=== PATIENT | female | born 1970 | race Caucasian/White ===

== ENCOUNTER 2018-07-02 11:12 | Inpatient (IN) | payer MEDICAID, OTHER ==
[~2018-07-02] VITALS: Ht 160 cm; Wt 76.0 kg
[~2018-07-02 11:12] MED LIST: MEDR5TAB4 PO; METF-480 PO; METF-849 PO; REG SC
[2018-07-02] MEDS ORDERED: ONDANSETRON (ODT) 4 MG TAB ODT STA (12:02)
[2018-07-02] MEDS ORDERED: HYDROCODONE/APAP (5/325) TAB PO ONE (12:30)
[2018-07-02] MEDS ORDERED: SOD CHLORIDE 0.9% 1,000 ML IV STA (13:58)
[2018-07-02] MEDS ORDERED: ONDANSETRON 4 MG INJ IV PRN ×2 (15:00→17:30)
[2018-07-02] MEDS ORDERED: ACETAMINOPHEN 325 MG TAB PO PRN ×2 (15:00→17:30)
--- NOTE | 2018-07-02 15:51 | ERD ---
ER Documentation Chief Complaint Chief Complaint LEFT SIDED ABD PAIN SINCE THIS MORNING HPI 48-year-old female presenting with left-sided flank pain and epigastric pain times 1 day. Patient started vomiting this morning approximately 8 hours prior to my evaluation. Last bowel movement was earlier today. No dysuria. Patient states that she is diabetic on both insulin and pills. NKDA. Surgical history denies. Social history denies. Denies fever. ROS All systems reviewed and are negative except as per history of present illness. Medications Home Meds Active Scripts Medroxyprogesterone Acetate* (Medroxyprogesterone Acetate*) 5 Mg Tablet, 5 MG PO DAILY for 5 Days, TAB Prov:BRITT BUSTILLO PA-C 12/21/15 Metformin* (Glucophage*) 500 Mg Tab, 500 MG PO BID, #28 TAB Prov:BRITT BUSTILLO PA-C 12/21/15 Reported Medications Insulin Human Regular (Novolin-R) 100 Unit/Ml Soln, SC BID 02/25/12 Metformin* (Glucophage*) 850 Mg Tablet, PO TID. 02/25/12 Allergies Allergies: Coded Allergies: No Known Allergy (Unverified , 02/25/14) PMhx/Soc History of Surgery: Yes () Anesthesia Reaction: No Hx Neurological Disorder: No Hx Respiratory Disorders: No Hx Cardiac Disorders: No Hx Psychiatric Problems: No Hx Miscellaneous Medical Probl: Yes (dm) Hx Alcohol Use: Yes (SOMETIMES) Hx Substance Use: No Hx Tobacco Use: No Smoking Status: Never smoker FmHx Family History: No diabetes, No coronary disease, No other Physical Exam Vitals Vital Signs Date Temp Pulse Resp B/P (MAP) Pulse Ox O2 O2 Flow FiO2 Time Delivery Rate 07/02/18 98.9 89 18 124/71 99 11:22 (88) Physical Exam GENERAL: The patient is well-appearing, well-nourished, in no acute distress HEENT: Atraumatic. Conjunctivae are pink. Pupils equal, round, and reactive to light. There is no scleral icterus. Tympanic membranes clear bilaterally. Oropharynx clear. NECK: C-spine is soft and supple. There is no meningismus. There is no cervical lymphadenopathy. CHEST: Clear to auscultation bilaterally. There are no rales, wheezes or rhonchi. HEART: Regular rate and rhythm. No murmurs, clicks, rubs or gallops. ABDOMEN: Normal active bowel sounds. Tender to palpation epigastric region and left lower quadrant. No rebound tenderness. No organomegaly. No fluid shift. BACK: No midline or flank tenderness. Result Diagram: 07/02/18 1252 07/02/18 1252 Results 24 hrs Laboratory Tests Test 07/02/18 12:52 07/02/18 12:54 07/02/18 12:56 White Blood Count 10.9 10^3/ul Red Blood Count 4.66 10^6/ul Hemoglobin 14.5 g/dl Hematocrit 42.6 % Mean Corpuscular Volume 91.4 fl Mean Corpuscular Hemoglobin 31.1 pg Mean Corpuscular 34.0 g/dl Hemoglobin Concent Red Cell Distribution Width 12.0 % Platelet Count 228 10^3/UL Mean Platelet Volume 10.9 fl Immature Granulocytes % 0.500 % Neutrophils % 53.7 % Lymphocytes % 35.9 % Monocytes % 7.6 % Eosinophils % 1.7 % Basophils % 0.6 % Nucleated Red Blood Cells % 0.0 /100WBC Immature Granulocytes # 0.050 10^3/ul Neutrophils # 5.8 10^3/ul Lymphocytes # 3.9 10^3/ul Monocytes # 0.8 10^3/ul Eosinophils # 0.2 10^3/ul Basophils # 0.1 10^3/ul Nucleated Red Blood Cells # 0.0 10^3/ul Sodium Level 140 mmol/L Potassium Level 4.0 mmol/L Chloride Level 100 mmol/L Carbon Dioxide Level 30 mmol/L Anion Gap 10 Blood Urea Nitrogen 14 mg/dl Creatinine 0.45 mg/dl Est Glomerular Filtrat > 60 mL/min Rate mL/min Glucose Level 209 mg/dl Calcium Level 9.7 mg/dl Total Bilirubin 0.3 mg/dl Direct Bilirubin 0.00 mg/dl Indirect Bilirubin 0.3 mg/dl Aspartate Amino 34 IU/L Transf (AST/SGOT) Alanine 38 IU/L Aminotransferase (ALT/SGPT) Alkaline Phosphatase 68 IU/L Total Protein 7.7 g/dl Albumin 4.2 g/dl Globulin 3.50 g/dl Albumin/Globulin Ratio 1.20 Lipase 1601 U/L Urine Color YELLOW Urine Clarity SLIGHTLY CLOUDY Urine pH 7.0 Urine Specific [place] 1.017 Urine Ketones NEGATIVE mg/dL Urine Nitrite NEGATIVE mg/dL Urine Bilirubin NEGATIVE mg/dL Urine Urobilinogen NEGATIVE mg/dL Urine Leukocyte Esterase 3+ Mary/ul Urine Microscopic RBC 0 /HPF Urine Microscopic WBC 10 /HPF Urine Squamous Epithelial Cells FEW /HPF Urine Hemoglobin NEGATIVE mg/dL Urine Glucose 3+ mg/dL Urine Total Protein NEGATIVE mg/dl POC Beta HCG, Qualitative NEGATIVE Current Medications Medications Dose Sig/Luis Start Time Status Last (Trade) Ordered Route PRN Stop Time Admin Dose Reason Admin 1 tab ONCE ONCE 07/02/18 DC 07/02/18 Acetaminophen PO 12:30 12:45 / 07/02/18 12:31 Hydrocodone Bitart ([place] (5/325)) Ondansetron 4 mg ONCE STAT 07/02/18 DC 07/02/18 HCl (Zofran ODT 12:02 12:44 Odt) 07/02/18 12:04 Sodium 1,000 ml @ Q1H STAT 07/02/18 DC 07/02/18 Chloride 1,000 mls/hr IV 13:58 14:26 07/02/18 14:57 Ondansetron 4 mg BRIDGE ORDER 07/02/18 HCl (Zofran PRN IV 15:00 Inj) NAUSEA/VOMITI 07/03/18 14:59 NG 650 mg ER BRIDGE 07/02/18 Acetaminophen PRN PO 15:00 (Tylenol .MILD PAIN 07/03/18 14:59 Tab) 1-3 OR TEMP Procedures/MDM DIAGNOSTIC IMAGING REPORT Patient: MERLE CARDENAS : 1970 Age: 48 Sex: F MR #: [id number] DOS: 07/02/18 1202 Ordering MD: IVY CALLAHAN PA-C Location: E Room/Bed: PROCEDURE: CT Abdomen and Pelvis without intravenous contrast. CLINICAL INDICATION: Left-sided abdominal pain.. TECHNIQUE: CT scan of the abdomen and pelvis without contrast was performed on a multi-detector high-resolution CT scanner. The patient was scanned without IV contrast. Coronal and sagittal reformatted images were obtained from the axial source images. DICOM images are available. Total DLP = 943.0 mGy-cm. CTDIvol = 16.1 mGy. One or more of the following dose reduction techniques were used: Automated exposure control. Adjustment of the mA and/or kV according to patient size. Use of iterative reconstruction technique. COMPARISON: None. FINDINGS: Lower thorax: Normal. Liver: Hepatic steatosis without focal mass.. Biliary: Normal gallbladder. No biliary dilatation. Pancreas: Normal. Spleen: Normal. Adrenal Glands: Normal. Genitourinary: Normal. Incidental retroaortic left renal vein is seen. Gastrointestinal: Normal. Lymph nodes: Normal. Vascular: Normal. Peritoneum/mesentery: Normal. No free fluid or free air. Reproductive organs: Normal. Musculoskeletal: There is a small fat-containing umbilical hernia. Lack of IV and oral contrast limits sensitivity of exam. IMPRESSION: 1. Hepatic steatosis. 2. Small fat-containing umbilical hernia. 3. Otherwise unremarkable noncontrast CT abdomen and pelvis without acute pathology identified. DIAGNOSTIC IMAGING REPORT Patient: MERLE CARDENAS : 1970 Age: 48 Sex: F MR #: [id number] DOS: 07/02/18 1202 Ordering MD: IVY CALLAHAN PA-C Location: [facility] Room/Bed: PROCEDURE: US Abdomen (right upper quadrant). CLINICAL INDICATION: Abdominal pain TECHNIQUE: Multiple real-time longitudinal and transverse images of the right upper quadrant of the abdomen were acquired utilizing a curved array transducer. Images were reviewed on a high-resolution PACS workstation. COMPARISON: None FINDINGS: The liver is normal in size and demonstrates diffusely increased echogenicity without focal mass or intrahepatic biliary dilatation. The gallbladder is normal. There is no pericholecystic fluid or gallbladder wall thickening or gallstones. No intra or extrahepatic biliary dilatation is seen. The common bile duct measures 3.6 mm in maximal dimension. The visualized portions of the pancreas are unremarkable with obscuration of the tail of the pancreas. No free fluid is identified. The right kidney measures 10.7 cm in length. There is mild right hydr onephrosis. There is normal echogenicity within the right kidney. There is no perinephric fluid collection. No mass or calculus is seen. IMPRESSION: 1. Diffusely sclerotic echogenicity suggesting steatosis. 2. Mild right hydronephrosis ER course: [place] given ED. 1 L normal saline given via IV. Toradol given via IV MDM: 48-year-old female presenting with abdominal pain. Patient has findings consistent with pancreatitis and will be admitted for higher level of care. This case was assisted by Dr. Razo. I have low suspicion for abdominal infection. Patient is admitted stable. All questions answered discharge JOSIAS CALLAHAN PA-C Jul 02, 2018 15:51
--- NOTE | 2018-07-02 15:54 | QN ---
Documentation Comment My independent concise history is abdominal pain. My pertinent physical exam findings are epigastric pain. The plan is fluids, n.p.o., and admission to the panel team to a medical surgical bed. LOLI DELACRUZ MD Jul 02, 2018 15:54
[2018-07-02 16:54] VITALS: Ht 160 cm; Wt 76.0 kg
[2018-07-02 17:07] VITALS: BP 127/58; PULSE 66; RESP 12
[2018-07-02] MEDS ORDERED: DEXTROSE 50% 50 ML SYRINGE IV PRN ×2 (17:30)
[2018-07-02] MEDS ORDERED: GLUCOSE GEL 15 GRAM TUBE PO PRN ×2 (17:30)
[2018-07-02] MEDS ORDERED: LORAZEPAM 2 MG INJ IV PRN (17:30)
[2018-07-02] MEDS ORDERED: GLUCAGON 1 MG INJ IM PRN (17:30)
[2018-07-02] MEDS ORDERED: NITROGLYCERIN (SL) 0.4 MG TAB SL PRN (17:30)
[2018-07-02] MEDS ORDERED: GLUCOSE GEL 15 GRAM TUBE BUCCAL PRN (17:30)
[2018-07-02] MEDS ORDERED: MAGNESIUM HYDROXIDE 30ML CUP PO PRN (17:30)
[2018-07-02] MEDS ORDERED: DOCUSATE SODIUM 100 MG CAP PO PRN (17:30)
[2018-07-02] MEDS ORDERED: hydrALAzine 20 MG INJ IV PRN (17:30)
[2018-07-02] MEDS ORDERED: morphine 2 MG INJ IV PRN (17:30)
[2018-07-02] MEDS ORDERED: ALBUTEROL/IPRATROPIUM (NEB) 3 ML AMP HHN PRN (17:30)
[2018-07-02] MEDS ORDERED: HYDROCODONE/APAP (5/325) TAB PO PRN (17:30)
[2018-07-02] MEDS ORDERED: NACL 0.9% 3 ML SYG IV SCH (17:30)
[2018-07-02] MEDS ORDERED: CEFTRIAXONE 1 GM/50 ML (PMX) 50 ML IVPB SCH (18:00)
[2018-07-02] MEDS: SOD CHLORIDE 0.9% 1,000 ML IV SCH (18:33)
--- NOTE | 2018-07-02 18:35 | HP ---
DATE OF ADMISSION: 07/02/2018 IDENTIFICATION: This is a 48-year-old female. CHIEF COMPLAINT: Left flank and abdominal pain. HISTORY OF PRESENT ILLNESS: A 48-year-old female with a past medical history of diabetes, prior C-se ction who comes in with left flank and abdominal pain. Symptoms have been going on for the last 1 da y. She also had some nonbilious, nonbloody vomiting symptoms. Denies any dysuria or hematuria. No upper or lower GI bleeding. No fevers or chills. No diarrhea or constipation. When she came in [facility], she was found with elevated lipase levels of 1600, signs of pancreatitis. She also had a white b lood cell count of 10.9 and her UA was positive 3+ leukocyte esterase, signs of UTI. PAST MEDICAL HISTORY: As above. ALLERGIES: NO KNOWN DRUG ALLERGIES. HOME MEDICATIONS: 1. Metformin 500 mg b.i.d. 2. Novolin R insulin b.i.d. at home. PAST SURGICAL HISTORY: . FAMILY HISTORY: Noncontributory. SOCIAL HISTORY: Occasional alcohol use. Denies any IV drug abuse or smoking history. PHYSICAL EXAMINATION: VITAL SIGNS: T-max 98.9, pulse 89, respirations 19, blood pressure 124/71, satting at 99% on room ai r. GENERAL: The patient is lying in bed, slightly obese; otherwise, in no acute distress. HEENT: Pupils are equal, round, react to light. Extraocular muscles are intact. NECK: Supple. No thyromegaly. LUNGS: Clear to auscultation bilaterally. CARDIOVASCULAR: S1, S2 heard. No rubs, no gallops. ABDOMEN: Mild tenderness to palpation in epigastric area and left lower quadrant area. No rebound o r guarding. Normal bowel sounds otherwise. MUSCULOSKELETAL: No lower extremity edema bilaterally. NEUROLOGIC: No focal deficits. LABORATORIES: Again, WBC 10.9. The rest of the CBC is normal. The comprehensive metabolic panel is normal, but the lipase is 1601. UA shows 3+ leukocyte esterase positive, negative nitrites. IMAGING: She had a CT abdomen and pelvis performed today that showed hepatic steatosis, small fat co ntaining umbilical hernia; otherwise unremarkable CT scan. She had a gallbladder ultrasound performe d which shows again some steatosis, mild right hydronephrosis. ASSESSMENT AND PLAN: A 48-year-old female with abdominal pain for 1 day with signs of pancreatitis a nd also signs of urinary tract infections. 1. Abdominal pain, likely secondary to pancreatitis, unclear source. The patient does drink occasio nal alcohol. There were no signs of any gallstones on the CT scan and gallbladder ultrasound, so I m et with the patient. Keep her n.p.o. and give IV fluids. Check TSH, A1c, lipid panel. Give her ant iemetic medications, pain control medications. Trend her lipase. We will check ethanol level. 2. Diabetes. Again, followup A1c. Put on sliding scale insulin. Hold her p.o. diabetic medication s for now. 3. Prior history of . No present issues. Monitor for now. 4. Gastrointestinal prophylaxis. PPI. 5. Deep venous thrombosis prophylaxis, heparin subcutaneously. Dictated By: KATIANA ADAME/RAJEEV Conf#: [id number] DID#: [id number]
[2018-07-02 19:59] VITALS: BP 105/55; PULSE 68; RESP 18
[2018-07-02] MEDS: INSULIN ASPART [NOVOLOG] 3 ML PEN SC SCH (20:57)
[2018-07-02] MEDS: HEPARIN 5,000 UNIT/1 ML VIAL SC SCH (21:19)
[2018-07-03] MEDS: INSULIN ASPART [NOVOLOG] 3 ML PEN SC SCH ×4 (01:00→12:52)
[2018-07-03] MEDS ORDERED: ACCU-CHEK XX SCH (02:00)
[2018-07-03] MEDS: SOD CHLORIDE 0.9% 1,000 ML IV SCH ×2 (05:03→13:30)
[2018-07-03] MEDS ORDERED: PANTOPRAZOLE 40 MG INJ IV SCH (06:00)
[2018-07-03] MEDS: HEPARIN 5,000 UNIT/1 ML VIAL SC SCH (08:06)
[2018-07-03 08:11] VITALS: BP 116/66; PULSE 64; RESP 18
--- NOTE | 2018-07-03 13:20 | PDOCDIS ---
Discharge Instructions CONDITION [id number] Patient Condition: [id number] Stable HOME CARE INSTRUCTIONS: [id number] Special Diet: [id number] Carb controlled ACTIVITY: [id number] Activity Restrictions: [id number] Slowly Increase Activity Rest between Activity Avoid heavy lifting FOLLOW UP/APPOINTMENTS Follow-up Plan Please take your medications as prescribed, see your doctor in the clinic in the next 1 week. KATIANA CALLOWAY Jul 03, 2018 13:20
[2018-07-03] MEDS ORDERED: CIPR-193 PO (13:22)
--- NOTE | 2018-07-03 13:25 | DS ---
Date/Time of Note Date/Time of Note DATE: 07/03/18 TIME: 13:22 Discharge Summary Admission/Discharge Info Admit Date/Time Jul 02, 2018 at 14:54 Discharge Date/Time Discharge Diagnosis 1. Abdominal pain- secondary to pancreatitis -resolved now. Counseled on al cohol cessation. 2. Diabetes-gestational but A1c 11.1 3. Prior history of . 4. Simple UTI Patient Condition: Stable Hx of Present Illness 48-year-old female with a past medical history of diabetes, prior who comes in with left flank and abdominal pain. Symptoms have been going on for the last 1 day. She also had some nonbilious, nonbloody vomiting symptoms. Denies any dysuria or hematuria. No upper or lower GI bleeding. No fevers or chills. No diarrhea or constipation. When she came in today, she was found with elevated lipase levels of 1600, signs of pancreatitis. She also had a white blood cell count of 10.9 and her UA was positive 3+ leukocyte esterase, signs of UTI. Hospital Course Patient was admitted to medical surgical unit. Patient made n.p.o. and given IV fluids and pain control medications. Her lipase trended down nicely over the next 24 hours. She was started on carb controlled diet the next day. She tolerates that, as her vital signs are stable, she is ambulating well, she will likely be discharged later today and in improved condition. Her A1c is found to be 11.1 but her sugars were stable. Unclear etiology of her pancreatitis, possibly secondary to alcohol intake. Patient counseled on importance of adequate to minimal alcohol intake. Gallbladder ultrasound did not show any signs of gallstones or cholecystitis. See below for full list of discharge medications. Home Meds Active Scripts Ciprofloxacin Hcl* (Ciprofloxacin Hcl*) 250 Mg Tablet, 250 MG PO BID@06,18, #6 TAB Prov:KATIANA CALLOWAY. 07/03/18 Medroxyprogesterone Acetate* (Medroxyprogesterone Acetate*) 5 Mg Tablet, 5 MG PO DAILY for 5 Days, TAB Prov:BRITT BUSTILLO PA-C 12/21/15 Reported Medications Insulin Human Regular (Novolin-R) 100 Unit/Ml Soln, SC BID 02/25/12 Metformin* (Glucophage*) 850 Mg Tablet, PO TID. 02/25/12 Discontinued Scripts Metformin* (Glucophage*) 500 Mg Tab, 500 MG PO BID, #28 TAB Prov:BRITT BUSTILLO PA-C 12/21/15 Follow-up Plan Please take your medications as prescribed, see your doctor in the clinic in the next 1 week. Primary Care Provider Care Physician No Primary Time spent on discharge: > 30 minutes Pending Labs Laboratory Tests Test 07/02/18 17:47 07/02/18 18:44 07/02/18 20:46 07/03/18 01:01 Free Thyroxine 1.76 ng/dl (0.64-1.7 9) Ethyl Alcohol < 10.0 Level mg/dl (0-0) Bedside 108 117 Glucose mg/dL (70-220) mg/dL (70-220) Test 07/03/18 04:22 07/03/18 04:23 07/03/18 05:05 07/03/18 09:27 White Blood 9.3 Count 10^3/ul (4.8-10 .8) Red Blood 4.36 Count 10^6/ul (4.20-5 .40) Hemoglobin 13.5 g/dl (12.0-16.0 ) Hematocrit 40.3 % (37.0-47.0) Mean 92.4 Corpuscular fl (82.0-101.0) Volume Mean 31.0 Corpuscular pg (29.0-33.0) Hemoglobin Mean 33.5 Corpuscular g/dl (32.0-37.0 Hemoglobin Conc ) ent Red Cell 11.9 Distribution % (11.5-14.5) Width Platelet Count 203 10^3/UL (140-41 5) Mean Platelet 11.3 Volume fl (7.4-10.4) Immature 0.300 Granulocytes % % (0.001-0.429) Neutrophils % 54.6 % (39.0-77.0) Lymphocytes % 33.7 % (15.0-51.0) Monocytes % 8.4 % (0.0-11.0) Eosinophils % 2.5 % (0.0-7.0) Basophils % 0.5 % (0.0-2.0) Nucleated Red 0.0 Blood Cells % /100WBC (0.0-0. 0) Immature 0.030 Granulocytes # 10^3/ul (0.0-0. 031) Neutrophils # 5.1 10^3/ul (1.6-7. 5) Lymphocytes # 3.1 10^3/ul (0.8-2. 9) Monocytes # 0.8 10^3/ul (0.3-0. 9) Eosinophils # 0.2 10^3/ul (0.0-0. 5) Basophils # 0.1 10^3/ul (0.0-0. 1) Nucleated Red 0.0 Blood Cells # 10^3/ul (0.0-0. 0) Sodium Level 143 mmol/L (135-144 ) Potassium 4.0 Level mmol/L (3.5-5.1 ) Chloride Level 108 mmol/L (97-110) Carbon Dioxide 25 Level mmol/L (21-31) Anion Gap 10 (5-13) Blood Urea 15 mg/dl (7-20) Nitrogen Creatinine 0.44 mg/dl (0.44-1.0 0) Est Glomerular > 60 Filtrat mL/min (>60) Rate mL/min Glucose Level 163 mg/dl (70-220) Calcium Level 9.1 mg/dl (8.4-10.2 ) Phosphorus 4.9 Level mg/dl (2.5-4.9) Magnesium 1.8 Level mg/dl (1.7-2.5) Triglycerides 118 Level mg/dl (0-149) Cholesterol 129 Level mg/dl (100-200) LDL 76 mg/dl Cholesterol, Calculated HDL 29 Cholesterol mg/dl (34-88) Cholesterol/HDL 4.4 RATIO Ratio Lipase 138 U/L (23-300) Thyroid 0.858 Stimulating MIU/L (0.465-4. Hormone (TSH) 680) Hemoglobin A1c 11.1 % (0-5.9) Bedside 145 151 Glucose mg/dL (70-220) mg/dL (70-220) Test 07/03/18 12:51 Bedside 122 Glucose mg/dL (70-220) Microbiology Date/Time Source Procedure Growth Status 07/02/18 18:00 Clean Catch Urine Urine Culture - Preliminary NO Resulted GROWTH AFTER 24 HOURS KATIANA CALLOWAY Jul 03, 2018 13:25
[2018-07-03] MEDS ORDERED: CIPROFLOXACIN 250 MG TAB PO SCH (13:30)
== END 2018-07-03 16:15 | disposition home or self-care (01) | DRG 439 ==
LOC: FTE 11:12 → MS1 14:54 → EDBEDREQ 15:04
PROVIDERS: ADMIT Hospitalist; ATTEND Hospitalist
DX: K85.90 Acute pancreatitis without necrosis or infection, unspecified (principal); N39.0 Urinary tract infection, site not specified; E11.9 Type 2 diabetes mellitus without complications; Z79.4 Long term (current) use of insulin; Z72.89 Other problems related to lifestyle
CPT/HCPCS: 36415; 74176; 76705; 80048; 80053; 80061; 80307; 81001; 81025; 82962; 83036; 83690; 83735; 84100; 84439; 84443; 85025; 87086; C9113; J0696; J1644; J1815; J7030